=== PATIENT | female | born 1990 | race Caucasian/White ===

== ENCOUNTER 2020-04-05 10:49 | Emergency (ER) | payer OTHER ==
[~2020-04-05] VITALS: Ht 165.1 cm; Wt 64.0 kg
[2020-04-05 10:59] VITALS: Ht 165.1 cm; Wt 64.0 kg
[2020-04-05 11:49] VITALS: BP 124/88
== END 2020-04-05 11:49 | disposition home or self-care (01) ==
LOC: ED 10:49
DX: F41.9 Anxiety disorder, unspecified (principal); G47.00 Insomnia, unspecified; F13.239 Sedative, hypnotic or anxiolytic dependence with withdrawal, unspecified; Z90.89 Acquired absence of other organs; Z76.0 Encounter for issue of repeat prescription